=== PATIENT | male | born 1955 | race Caucasian/White ===

== ENCOUNTER 2017-09-14 07:53 | Day surgery (SDC) | payer OTHER ==
[~2017-09-14 07:53] MED LIST: ANCEF/STERILE WATER 2 GM/20 ML IV NR
--- NOTE | 2017-09-14 08:38 | Anesthesia Consultation ---
Anesthesia Consult and Med Hx Date of service: 09/14/17 - Airway Anesthetic Teeth Evaluation: Crowns (one tooth chiped upper left side) ROM Head & Neck: Adequate Mental/Hyoid Distance: Adequate Mallampati Class: Class II Intubation Access Assessment: Probably Good - Pulmonary Exam CTA: Yes - Cardiac Exam Cardiac Exam: RRR - Pre-Operative Health Status ASA Pre-Surgery Classification: ASA3 Proposed Anesthetic Plan: General (has had PONV on one occasion) - Pulmonary Hx Smoking: Yes (STOPPED AT AGE 28YRS-1 PPD X 10 YRS) Hx Respiratory Symptoms: Yes (seasonal allergies; flonase) Hx Sleep Apnea: Yes (DX SLEEP APNEA WITH CPAP USE.) - Cardiovascular System Hx Hypertension: Yes (X 37 YRS; high cholesterol) - Central Nervous System Hx Back Pain: Yes - Other Systems Hx Alcohol Use: Yes (occasional)
--- NOTE | 2017-09-14 08:39 | Anesthesia Day of Surgery ---
Anesthesia Day of Surgery - Day of Surgery Patient Examined: Yes Patient H&P Reviewed: Yes Patient is NPO: Yes
[2017-09-14] MEDS ORDERED: VERSED IV NR (09:00)
[2017-09-14] MEDS ORDERED: PEPCID IV NR (09:00)
[2017-09-14] MEDS ORDERED: NACL 0.9% 1000 ML 1,000 ML IV SCH (09:00)
[2017-09-14] MEDS ORDERED: ZOFRAN IV NR (09:00)
[2017-09-14] MEDS ORDERED: LACTATED RINGERS 1,000 ML IV SCH (09:29)
[2017-09-14] MEDS ORDERED: XYLOCAINE MPF 2% ONE (10:06)
[2017-09-14] MEDS ORDERED: DIPRIVAN 10 MG/ML IV ONE (10:07)
[2017-09-14] MEDS ORDERED: SUBLIMAZE ONE (10:07)
[2017-09-14] MEDS ORDERED: DECADRON ONE (10:13)
[2017-09-14] MEDS ORDERED: ZOFRAN ONE (10:13)
[2017-09-14] MEDS ORDERED: MORPHINE IV PRN (10:16)
[2017-09-14] MEDS ORDERED: NACL 0.9% IR ONE (10:19)
[2017-09-14] MEDS ORDERED: ROBINUL ONE (10:19)
[2017-09-14] MEDS ORDERED: ZEMURON IV ONE (10:19)
[2017-09-14] MEDS ORDERED: MARCAINE 0.25% INFILTRATI ONE ×2 (10:19→10:21)
[2017-09-14] MEDS ORDERED: NEOSTIGMINE ONE (10:19)
[2017-09-14] MEDS ORDERED: XYLOCAINE 1% 20 mL ONE (10:21)
--- NOTE | 2017-09-14 11:21 | Short Stay Summary ---
Short Stay Documentation - Allergies and Medications Current Medications: Allergies aspirin Allergy (Verified 09/11/17 11:01) Anaphylaxis NSAIDS (Non-Steroidal Anti-Inflamma Allergy (Verified 09/11/17 11:01) Anaphylaxis Home Medications Medication Instructions Recorded Confirmed Last Taken Type Amlodipine Besylate [Norvasc] 10 mg PO DAILY 09/11/17 09/11/17 Unknown History Atorvastatin Calcium [Lipitor] 40 mg PO QHS 09/11/17 09/11/17 Unknown History Empagliflozin [Jardiance] 10 mg PO DAILY 09/11/17 09/11/17 Unknown History Fluticasone [Flonase] 1 spray NS PRN PRN 09/11/17 09/11/17 Unknown History Hydrochlorothiazide [HCTZ] 25 mg PO QDAY 09/11/17 09/11/17 Unknown History Omeprazole 40 mg PO Q48HR 09/11/17 09/11/17 Unknown History Ramipril 10 mg PO DAILY 09/11/17 09/11/17 Unknown History Tamoxifen Citrate 20 mg PO DAILY 09/11/17 09/11/17 Unknown History Active Medications Cefazolin Sodium (Ancef/Sterile Water 2 Gm/20 Ml) 2 gm IV PREOP NR Stop: 09/14/17 23:59 Famotidine (Pepcid) 20 mg IV PREOP NR Stop: 09/14/17 15:00 Last Admin: 09/14/17 09:06 Dose: 20 mg Sodium Chloride (Nacl 0.9% 1000 Ml) 1,000 mls @ 125 mls/hr IV DIRECT KELIN Stop: 09/14/17 19:00 Last Admin: 09/14/17 09:05 Dose: 125 mls/hr Lactated Ringer's (Lactated Ringers) 1,000 mls @ 100 mls/hr IV DIRECT KELIN Stop: 09/14/17 23:59 Last Admin: 09/14/17 09:37 Dose: 100 mls/hr Midazolam HCl (Versed) 2 mg IV PREOP NR Stop: 09/14/17 17:00 Last Admin: 09/14/17 09:22 Dose: 2 mg Morphine Sulfate (Morphine) 2 mg IV Q10MIN PRN PRN Reason: Pain, Moderate (4-6) Stop: 09/14/17 12:00 Ondansetron HCl (Zofran) 4 mg IV PREOP NR Stop: 09/14/17 17:00 Last Admin: 09/14/17 09:06 Dose: 4 mg Short Stay Discharge Plan Activity: no restrictions, advance as tolerated Weight Bearing Status: Full Weight Bearing Diet: regular Wound: change dressing, per your surgeon's advice Special Instructions: physical therapy Additional Instructions: follow DC instruction sheet keep [id number] dry change dressing on monday and reapply clean dressing start PT tomorrow Follow up with: RED LEDEZMA MD [Staff Physician] - 14 Days NICOLE GEE MD [Primary Care Provider] - 7 Days
--- NOTE | 2017-09-14 12:07 | Operative Report ---
PREOPERATIVE DIAGNOSES: 1. Painful right knee. 2. Lateral meniscus tear, complex right knee joint. POSTOPERATIVE DIAGNOSES: 1. Moderate osteoarthritis of the lateral and patellofemoral joint. 2. Lateral meniscus tear, mid body and junction of posterior horn mid body with synovitis, synovial proliferation. COMPLICATIONS: None. BLOOD LOSS: Minimal. SURGEON: Kale Arora M.D. TOWBOAT OPERATOR: Dick Ghotra, operative tech. PROCEDURES PERFORMED: 1. Right knee arthroscopy. 2. Arthroscopic partial lateral meniscectomy. 3. Arthroscopic debridement and chondroplasty of patellofemoral joint. BRIEF HISTORY: The patient is a 62-year-old man with painful right knee, failed conservative treatment, opted to undergo surgical intervention. Risk and benefit discussed, informed consent obtained, brought to the hospital for the above procedure. DETAILS OF THE OPERATIVE REPORT: The patient was taken to the operating room. After smooth general anesthesia, all the bony prominences were carefully padded, placed supine on the operating table. Thigh tourniquet placed. Right knee, right lower extremity prepped and draped in sterile fashion. Leg elevated after 2 gram Ancef given half an hour before the procedure. Leg elevated, tourniquet inflated to 350 mmHg. A high lateral portal was created. Arthroscope introduced. Diagnostic arthroscopy was performed. Findings are noted below. Under direct visualization, direct medial portal was created. Using necessary synovial resector and biters, partial lateral meniscectomy performed. The patient had postsurgical changes from the previous site on the lateral meniscus area, some radial tears and some complex tear pattern was noticed and was debrided off with mónica and biters. Stable meniscal rim was achieved. Previously had significant lateral meniscectomy and before even any meniscus treatment on the lateral side was encountered, we saw the popliteus as well and that means the patient had significant lateral meniscectomy in the past. There was some complex tear pattern noticed on the junction of posterior horn mid body and mid body and that was debrided off as well. Synovitis, minimal synovial proliferation performed and limited synovectomy was performed along with debridement, chondroplasty of the arthritis in the retropatellar area. All the fluid was suctioned out once procedures performed and portal sites closed with 3-0 nylon interrupted sutures and dressing was done with Xeroform, 4 x 4s, ABD, cast padding, Nathanael wrap and portal sites. Before the dressing, portal sites were infiltrated with 3 mL of Marcaine plain 0.25% in each portal. Arthroscopic finding, lateral gutter pristine with some signs of synovitis and synovial proliferation. There is the retropatellar area, grade 4 osteoarthritic changes about 50% and grade 3, 50%. Trochlea grade 3+ about 60%. Medial femoral condyle, pretty as grade 2 changes and 80%, grade 4 in about 20%. Medial meniscus normal pristine. Medial tibial condyle, grade 2 changes throughout. ACL intact with chronic partial tear, stable on testing and PCL intact. Lateral meniscus tear as described above and lateral femoral condyle, grade 4 osteoarthritic changes about 50% and grade 3, 50%. Lateral tibial plateau, grade 4 osteoarthritic changes 50% and grade 3, 50%. Fat pad normal. The patient tolerated the procedure well, shifted to recovery room in stable condition. Sponge and needle counts were correct. JOB# [id number] AUSTYN/MIKE
[2017-09-14 17:33] VITALS: BP 115/53
== END 2017-09-14 17:33 | disposition home or self-care (01) ==
LOC: OR 07:53
PROVIDERS: ATTEND Orthopaedic Surgery
DX: S83.271A Complex tear of lateral meniscus, current injury, right knee, initial encounter (principal); M17.11 Unilateral primary osteoarthritis, right knee; E78.00 Pure hypercholesterolemia, unspecified; E11.9 Type 2 diabetes mellitus without complications; K21.9 Gastro-esophageal reflux disease without esophagitis; I25.10 Atherosclerotic heart disease of native coronary artery without angina pectoris; I10 Essential (primary) hypertension; G47.33 Obstructive sleep apnea (adult) (pediatric); Z79.899 Other long term (current) drug therapy; Z79.84 Long term (current) use of oral hypoglycemic drugs; Z87.891 Personal history of nicotine dependence; Z88.6 Allergy status to analgesic agent; Z98.890 Other specified postprocedural states; X58.XXXA Exposure to other specified factors, initial encounter; Y93.89 Activity, other specified; Y92.89 Other specified places as the place of occurrence of the external cause; Y99.8 Other external cause status
CPT/HCPCS: 29881; 82962; A4217; J0690; J1100; J2250; J2405; J2704; J3010; J7030; J7120; J2710